=== PATIENT | male | born 1980 | race Caucasian/White ===

== ENCOUNTER 2021-11-16 15:03 | Inpatient (IN) ==
[2021-11-16 15:51] LABS: Bilirubin,Urine Negative (Negative); Blood,Urine Negative (Negative); Clarity,Urine Clear (Clear); Color,Urine Light-Yellow (Yellow); Glucose,Urine (UA) Normal (Normal); Ketones,Urine Trace mg/dL (Negative); Leukocyte Esterase,Urine Negative (Negative); Nitrite,Urine Negative (Negative); PH,Urine 6.5 pH Units (5.0-8.0); Protein,Urine Negative (Neg-Trace); Specific Gravity,Urine 1.018 (1.010-1.025); Urobilinogen,Urine Normal (Normal)
[2021-11-16 16:29] LABS: Amphetamine Screen,Urine Negative ng/mL (Cutoff=1000); Barbiturate Screen,Urine Negative ng/mL (Cutoff=200); Benzodiazepines Screen,Urine Negative ng/mL (Cutoff=200); Cannabinoid Screen,Urine Positive ng/mL (Cutoff = 50); Cocaine Screen,Urine Negative ng/mL (Cutoff= 300); Opiate Screen,Urine Negative ng/mL (Cutoff=300); Phencyclidine Screen,Urine Negative ng/mL (Cutoff=25)
[2021-11-16 21:43] LABS: Influenza A PCR Negative (Negative); Influenza B PCR Negative (Negative); Resp. Syncytial Virus PCR Negative (Negative)
[2021-11-16 21:57] LABS: SARS-CoV-2 by PCR (In House) Negative (Negative)
[2021-11-17] MEDS ORDERED: *HR* LORazepam 1 MG TABLET PO PRN (00:51)
[2021-11-17] MEDS ORDERED: *HR* LORazepam 2 MG/ML VIAL IM PRN (00:51)
[2021-11-17] MEDS ORDERED: Acetaminophen 325 MG TABLET PO PRN (00:51)
[2021-11-17] MEDS ORDERED: haloperidoL 5 MG TABLET PO PRN (00:51)
[2021-11-17] MEDS ORDERED: Ibuprofen 400 MG TABLET PO PRN (00:51)
[2021-11-17] MEDS ORDERED: Haloperidol Lactate 5 MG/ML VIAL IM PRN (00:51)
[2021-11-17] MEDS: Nicotine 21 MG PATCH.TD24 TD SCH ×3 (03:55→18:06)
[2021-11-17] MEDS ORDERED: Mag Hydrox/Al Hydrox/Simeth 30 ML UDC PO PRN (09:48)
[2021-11-17] MEDS: Thiamine (B-1) 100 MG TABLET PO SCH (14:59)
[2021-11-17] MEDS: Folic Acid 1 MG TABLET PO SCH (14:59)
[2021-11-17] MEDS: hydrOXYzine pamoate 25 MG CAPSULE PO PRN ×2 (18:07→21:31)
[2021-11-17] MEDS ORDERED: ARIPiprazole 2 MG TABLET PO SCH (21:00)
[2021-11-17] MEDS ORDERED: ARIPiprazole 5 MG TABLET PO SCH (21:00)
[2021-11-17] MEDS ORDERED: MOM Conc 10 ML UD.LIQ PO PRN (21:00)
[2021-11-17] MEDS: QUEtiapine Fumarate 25 MG TABLET PO PRN (21:31)
[2021-11-18] MEDS: Folic Acid 1 MG TABLET PO SCH (08:47)
[2021-11-18] MEDS: Nicotine 21 MG PATCH.TD24 TD SCH (08:47)
[2021-11-18] MEDS: Thiamine (B-1) 100 MG TABLET PO SCH (08:47)
[2021-11-18 20:11] VITALS: O2SAT 98
[2021-11-18] MEDS: hydrOXYzine pamoate 25 MG CAPSULE PO PRN (20:24)
[2021-11-18] MEDS ORDERED: ARIPiprazole 10 MG TABLET PO SCH (21:00)
[2021-11-18] MEDS: QUEtiapine Fumarate 25 MG TABLET PO PRN (22:00)
[2021-11-19] MEDS: Nicotine 21 MG PATCH.TD24 TD SCH (08:59)
[2021-11-19] MEDS: Thiamine (B-1) 100 MG TABLET PO SCH (09:00)
[2021-11-19] MEDS: Folic Acid 1 MG TABLET PO SCH (09:00)
[2021-11-19 10:37] VITALS: BP 110/64; PULSE 65; TEMP 98.2
[2021-11-19] MEDS ORDERED: FLU Vac QV 21-22 (6Month+)/PF 0.5 ML SYRINGE IM ONE (12:45)
== END 2021-11-19 15:15 | disposition home or self-care (01) | DRG 885 ==
LOC: EMEROOARM 15:03 → 1ANU 11-17 01:33
PROVIDERS: ADMIT Psychiatry & Neurology Psychiatry; ATTEND Psychiatry & Neurology Psychiatry